=== PATIENT | female | born 1950 | race Caucasian/White ===

== ENCOUNTER 2016-07-02 12:52 | Inpatient (IN) | payer MEDICARE ==
--- NOTE | 2016-09-07 11:48 | HP ---
DATE OF CLINIC: 08/22/2016 BERNADETTE WHITAKER : 1950 PLANNED PROCEDURE: Right Total Knee Arthroplasty DATE of SURGERY: September 10, 2016 SURGEON: Roddy Harris M.D. PCP: Dr. Holger Tovar HISTORY OF PRESENT ILLNESS Bernadette Whitaker is a 65 year old female. * Medication list reviewed with patient allergy list reviewed with patient. 65-year-old female is seen today in the clinic for preoperative H&P for upcoming right TKA. She is of course s/p left TKA in January of 2016. She is doing well. She has a significant degree of pain in her right knee and is ready to proceed with arthroplasty. Dr. Harirs's last consultation is as follows: Ms. Whitaker follows up today post left total knee arthroplasty on February 13, 2016. The patient presents in good spirits and she is quite happy with her progress to date. She has accomplished her goals with physical therapy and been discharged. She presently has no complaints of pain or instability. She has some mild dysesthesia on the medial aspect of her incision. She is eager to move forward with the contralateral knee. She denies any recent illness or change in health. CURRENT MEDICATION * *DME Miscellaneous as directed CPAP machine, 0 days, 0 refills * AmLODIPine Besylate 2.5 MG Tablet 1 once a day 0 days, 0 refills * [place] Thyroid 15 MG Tablet 1 once a day 0 days, 0 refills * Excedrin Migraine 250-250-65 MG Tablet as needed 0 days, 0 refills * FLUoxetine HCl 60 MG Tablet 1 once a day 0 days, 0 refills * Levothyroxine Sodium 137 MCG Tablet 1 once a day 0 days, 0 refills * Magnesium 400 MG Tablet 1 once a day 0 days, 0 refills * Meloxicam 7.5 MG Tablet as needed 0 days, 0 refills * Naproxen Sodium 220 MG Tablet as needed 0 days, 0 refills * OxyCODONE HCl 5 MG Tablet 1-2 po q 4 hours-NOT TO EXCEED 4 tabs A DAY, 7 days, 0 refills * Passion Flower-Valerian 500-500 MG Capsule as directed 0 days, 0 refills * Pramipexole Dihydrochloride 1 MG Tablet 1 once a day 0 days, 0 refills * Simvastatin 10 MG Tablet 1 once a day 0 days, 0 refills * Sleep Medicine Tablet as directed 0 days, 0 refills * TraZODone HCl 50 MG Tablet 2 once a day 0 days, 0 refills * Vitamin D3 2000 UNIT Tablet 1 once a day 0 days, 0 refills PAST MEDICAL/SURGICAL HISTORY Reported: Medical: History of Arthritis, Restless Leg Syndrome,, Depression, Thyroid Disorder, Anemia, and Vertigo. Surgical / Procedural: Prior surgery Eye 05/2014 Colon 05/2015, Appendectomy, and Tonsilectomy. Cortisone reaction. Surgical: * Hysterectomy SOCIAL HISTORY Social history unchanged. Behavioral: Quit smoking 08/06/16. Smoking status: Former smoker. Drug Use: Not using drugs. ALLERGIES * Gluten * Latex FAMILY HISTORY Father ill Heart disease, diabetes, cancer Mother ill Cancer, hypertension REVIEW OF SYSTEMS Systemic: No fever and no recent weight change. Head: No head symptoms. Cardiovascular: No cardiovascular symptoms. Pulmonary: No pulmonary symptoms. Gastrointestinal: No gastrointestinal symptoms. Psychological: No psychological symptoms. Skin: No skin lesions and no rash. PHYSICAL FINDINGS * Vitals taken 08/22/2016 02:58 pm BP-Sitting L 137/67 mmHg BP Cuff Size Regular Pulse Rate-Sitting 68 bpm Temp-Oral 97.3 F Height 65.5 in Weight 232 lbs Body Mass Index 38.0 kg/m2 Body Surface Area 2.12 m2 Pain Level 5 Ears, Nose, Throat: * ENT: normal. Lungs: * Clear to auscultation without wheezing or crackles. Cardiovascular: Heart Rate and Rhythm: * Normal RRR without murmur or rubs. Abdomen: * Normal obese soft NT +BS. Neurological: Motor: * Dominant Hand = Right Hand. This is a well-developed, well-nourished, obese 65-year-old female presenting to the office today in no acute distress. Alert and oriented times four with a normal mood and affect. EXAM OF THE LOWER EXTREMITIES: The patient is ambulating today with a reasonably smooth heel to toe gait. She is actually more antalgic on the contralateral side than her operative extremity. She has good balance in stance. Examination of the left knee itself reveals the incision site to be well healed and benign in appearance. She has mild global swelling about the knee. Active range of motion was 0 to 125 degree. The joint itself had good play without laxity. The patella was tracking well. Knee strength was 5/5. The thigh and calf were soft and non-tender. Kristi strength and motion was full at 5/5. The distal motor, sensory and vascular function was intact with palpable dorsalis and posterior tibialis pulses. RADIOGRAPHS: Three views of the left knee are available today from [facility]. No acute osseous abnormalities are noted. Left TKA components are good position without evidence of loosening. TESTS Imaging: X-Ray: Reviewed an X-ray. An X-ray was performed. X-rays reviewed on [facility]; please see radiologists interpretation. They show no acute fractures or dislocations, but has varus aligned knee with advanced degenerative changes in the medial compartment with osteophytic spurring here as well as the lateral tibial plateau, significant patellofemoral degenerative characteristics are also appreciated. ASSESSMENT Tricompartmental osteoarthritis of the right knee. THERAPY * Patient fall risk screen positive. * Patient eligible for fall risk assessment. * Patient received fall risk assessment. PLAN * Unilateral primary osteoarthritis, right knee Physical Therapy: *Other * OTHER OxyCODONE HCl 5 MG TABS, 1-2 po q 4 hours for break thru pain if needed-TO BE USED FOR AFTER SURGERY, 7 days, 0 refills OxyCONTIN 10 MG T12A, 1 po q 12 hours-TO BE USED FOR AFTER SURGERY, 10 days, 0 refills CeleBREX 200 MG CAPS, 1 once a day-TO BE USED FOR AFTER SURGERY ONLY, 20 days, 0 refills * Total knee arthroplasty -Right Discussed with patient in detail the limitations, expectations as well as risks and possible complications of surgery including, but not limited to wound problems or infection, neurovascular injury, continued knee pain or dysfunction, including the possibility of prosthetic wear or failure over time that may require additional operative or non-operative treatment. Patient also realizes the perioperative risks including risks associated with anesthesia and would like to proceed. A full PAR conference was held, questions and concerns addressed and informed consent was obtained. Patient will be sent from my office for completion of the preoperative workup. Patient will use ECASA 325mg one per day for 6 weeks postoperatively for DVT prophylaxis Patient would like to perform their postop PT at [facility] in [place] with total knee arthroplasty protocol. CARE TEAM Holger Tovar MD Internal Medicine Saul Garza PA-C Internal Medicine CC: Holger Tovar MD Internal Medicine [facility] [place] TMR/sg
[2016-09-10] MEDS ORDERED: BUPIVACAINE 0.75% SPINAL AMPUL 2 ML ONE (10:40)
[2016-09-10] MEDS ORDERED: DEXAMETHASONE SOD PHOS 4 MG/1 ML VIAL ONE (10:40)
[2016-09-10] MEDS ORDERED: METOCLOPRAMIDE HCL 5 MG/ML 2ML VIAL ONE (10:40)
[2016-09-10] MEDS ORDERED: LIDOCAINE 2% (PRES FREE) 5 ML VIAL ONE (10:40)
[2016-09-10] MEDS ORDERED: PROPOFOL 40 ML IV ONE (10:40)
[2016-09-10] MEDS ORDERED: ROPIVACAINE 0.5% 30 ML VIAL ONE (10:40)
[2016-09-10] MEDS ORDERED: MIDAZOLAM HCL 1 MG/ML 2ML VIAL ONE (10:41)
[2016-09-10] MEDS ORDERED: FENTANYL 100 MCG/2 ML VIAL ONE (10:42)
[2016-09-10] MEDS ORDERED: BUPIVACAINE 0.25% (MDV) 20 ML in SODIUM CHLORIDE 0.9% FLUSH 20 ML IF PRN (11:15)
[2016-09-10] MEDS ORDERED: CELECOXIB 200 MG CAPSULE PO ONE (11:15)
[2016-09-10] MEDS ORDERED: POLYMYXIN B SULFATE 500,000 UNITS, BACITRACIN 25,000 UNITS in SODIUM CHLORIDE 3 L IRRIG... IR PRN (11:15)
[2016-09-10] MEDS ORDERED: TRANEXAMIC ACID 1,000 MG in SODIUM CHLORIDE 0.9% 100 ML IV PRN (11:15)
[2016-09-10] MEDS ORDERED: ONDANSETRON 4 MG/2ML 2 ML VIAL IV ONE (11:15)
[2016-09-10] MEDS ORDERED: FAMOTIDINE 20 MG TABLET PO ONE (11:15)
[2016-09-10] MEDS ORDERED: OXYCODONE HCL 10 MG TAB.SR PO ONE ×2 (11:15→11:53)
[2016-09-10] MEDS ORDERED: TRAMADOL HCL 50 MG TABLET PO ONE (11:15)
[2016-09-10] MEDS ORDERED: GABAPENTIN 600 MG TABLET PO ONE (11:15)
[2016-09-10] MEDS ORDERED: BUPIVACAINE 0.25% (MDV) 24 ML, MORPHINE SULFATE 8 MG, EPINEPHRINE 0.3 MG in SODIUM CHLO... IF PRN (11:15)
[2016-09-10] MEDS ORDERED: CEFAZOLIN SODIUM 2 GRAM DUPLEX 50 ML IV PRN (11:15)
[2016-09-10] MEDS ORDERED: LACTATED RINGERS 1,000 ML ONE (11:16)
[2016-09-10] MEDS ORDERED: IV START KIT ONE (11:16)
[2016-09-10] MEDS ORDERED: CEFAZOLIN SODIUM 2 GRAM PREMIX 100 ML IV ONE (11:17)
[2016-09-10] MEDS ORDERED: CLONIDINE HCL 0.1 MG/24 HR (7 DAY PATCH) TD ONE (11:53)
[2016-09-10] MEDS ORDERED: GABAPENTIN 600 MG TABLET ONE (11:53)
[2016-09-10] MEDS ORDERED: TRAMADOL HCL 50 MG TABLET ONE (11:53)
[2016-09-10] MEDS ORDERED: FAMOTIDINE 20 MG TABLET ONE (11:53)
[2016-09-10] MEDS ORDERED: ONDANSETRON 4 MG/2ML 2 ML VIAL ONE (11:53)
[2016-09-10] MEDS ORDERED: CELECOXIB 200 MG CAPSULE ONE (11:53)
[2016-09-10] MEDS ORDERED: BUPIVACAINE 0.5% (PRES FREE) 30 ML VIAL ONE (12:14)
[2016-09-10] MEDS: CLONIDINE HCL 0.1 MG/24 HR (7 DAY PATCH) TD SCH (12:39)
[2016-09-10] MEDS ORDERED: NERVE BLOCK PROCEDURAL TRAY 1 EACH ONE (13:16)
[2016-09-10] MEDS ORDERED: SPINAL PROCEDURAL TRAY 1 EACH ONE (13:16)
[2016-09-10] MEDS ORDERED: NALOXONE HCL 0.4 MG/ML VIAL IV PRN (15:24)
[2016-09-10] MEDS ORDERED: PROMETHAZINE HCL 25 MG/ML VIAL IM PRN (15:24)
[2016-09-10] MEDS ORDERED: FENTANYL 100 MCG/2 ML VIAL IV PRN (15:24)
[2016-09-10] MEDS ORDERED: ONDANSETRON 4 MG/2ML 2 ML VIAL IV PRN ×2 (15:24→17:35)
[2016-09-10] MEDS ORDERED: HYDROMORPHONE HCL 1 MG/ML SYRINGE IV PRN (15:24)
[2016-09-10] MEDS ORDERED: ON-Q PUMP/ROPIVACAINE 0.2% 450 ML in PREMIX BAG 1 EACH NB PRN (15:24)
[2016-09-10] MEDS ORDERED: ATROPINE SULFATE 0.4 MG/1 ML VIAL IV PRN (15:24)
[2016-09-10] MEDS ORDERED: PROPOFOL 20 ML IV ONE ×2 (15:28→16:03)
[2016-09-10] MEDS ORDERED: LACTATED RINGERS 1,000 ML IV SCH (15:30)
--- NOTE | 2016-09-10 16:42 | PCMBPN ---
Brief Post Op Note: Date of Procedure: 09/10/16 Preoperative Diagnosis: right knee DJD Postoperative Diagnosis: same Procedure: right TKA Surgeon: Roddy Harris MD Assist: Aracelis (PAULIE) Anesthesia: spinal/add block (Naedem) Condition: stable to PAR Complications: none IV Fluids: 2000 mLs of LR Urine Output: 250 mLs Estimated Blood Loss: 300 mLs Tourniquet Time: ~50 Specimens: [N/A] Implants: Legion Drains: none
[2016-09-10] MEDS ORDERED: ON-Q PUMP/ROPIVACAINE 0.2% 450 ML ONE (17:00)
[2016-09-10] MEDS ORDERED: PRAMIPEXOLE DI-HCL 1 MG TABLET PO ONE (17:08)
[2016-09-10] MEDS ORDERED: CALCIUM CARBONATE 500 MG TAB.CHEW PO PRN (17:35)
[2016-09-10] MEDS ORDERED: KETOROLAC TROMETHAMINE 30 MG/ML 1 ML VIAL IV PRN (17:35)
[2016-09-10] MEDS ORDERED: TRAZODONE HCL 50 MG TABLET PO PRN (17:35)
--- NOTE | 2016-09-10 17:42 | RAD ---
EXAMINATION: KNEE RIGHT 1 OR 2 VIEWS INDICATION:Right total knee arthroplasty. TECHNIQUE: 2 views of the right knee were obtained. COMPARISON: Presurgical exam dated 11/30/2015. A Right total knee arthroplasty is noted. No hardware fracture or loosening is identified. Alignment is anatomic. Disruption of the adjacent soft tissues compatible with recent postsurgical changes are noted. IMPRESSION: Satisfactory immediate postoperative appearance right knee arthroplasty.
[2016-09-10 19:09] VITALS: BMI 36.9
[2016-09-10] MEDS ORDERED: HYDROMORPHONE HCL 0.5 MG/0.5 ML SYRINGE IV PRN (19:51)
[2016-09-10] MEDS ORDERED: HYDROMORPHONE HCL 2 MG/ML SYRINGE IV PRN (19:53)
[2016-09-10] MEDS: ACETAMINOPHEN 500 MG TABLET PO SCH (22:45)
[2016-09-10] MEDS: DOCUSATE SODIUM 100 MG CAPSULE PO SCH (22:46)
[2016-09-10] MEDS: ASCORBIC ACID 500 MG TABLET PO SCH (22:46)
[2016-09-10] MEDS: MELATONIN 3 MG TABLET PO SCH (22:46)
[2016-09-10] MEDS: PRAMIPEXOLE DI-HCL 1 MG TABLET PO SCH (22:46)
[2016-09-10] MEDS ORDERED: PUMP TUBING ONE (22:55)
[2016-09-10] MEDS: CEFAZOLIN SODIUM 1 GRAM PREMIX 1 G in Premix (D5W) 50 ml 1 EACH IV SCH (22:58)
[2016-09-10] MEDS: OXYCODONE HCL 10 MG TAB.SR PO SCH (22:58)
[2016-09-10] MEDS: D5 1/2NS with 20 mEq KCL 1,000 ML IV SCH (23:07)
[2016-09-10] MEDS ORDERED: WATER FOR IRRIG,STERILE 500 ML BOT ONE (23:20)
[2016-09-10] MEDS: OXYCODONE HCL 5 MG TABLET PO PRN (23:39)
[2016-09-11] MEDS: D5 1/2NS with 20 mEq KCL 1,000 ML IV SCH ×3 (02:48→18:30)
[2016-09-11] MEDS: ACETAMINOPHEN 500 MG TABLET PO SCH ×4 (04:38→22:09)
[2016-09-11] MEDS: OXYCODONE HCL 5 MG TABLET PO PRN ×4 (04:38→18:36)
[2016-09-11] MEDS: ON-Q PUMP/ROPIVACAINE 0.2% 450 ML in PREMIX BAG 1 EACH NB PRN (04:43)
[2016-09-11] MEDS: CEFAZOLIN SODIUM 1 GRAM PREMIX 1 G in Premix (D5W) 50 ml 1 EACH IV SCH (06:27)
[2016-09-11 06:41] LABS: HEMATOCRIT 33.4 % (37.0-47.0); HEMOGLOBIN 10.5 gm/l (12.0-16.0); MEAN CELL VOLUME 92.5 fl (81.0-99.0); MEAN CORPUSCULAR HEMOGLOBIN 29.1 pg (27.0-31.0); MEAN CORPUSCULAR HGB CONC 31.4 g/dl (33.0-37.0); RED CELL DISTRIBUTION WIDTH 13.1 % (11.5-14.5)
[2016-09-11 07:04] LABS: CALCIUM 8.7 mg/dL (8.6-10.3)
[2016-09-11] MEDS: LEVOTHYROXINE SODIUM 137 MCG TABLET PO SCH (07:25)
[2016-09-11] MEDS: VITAMIN D3 1,000 UNITS CAP.LIQ PO SCH (09:12)
[2016-09-11] MEDS: FLUOXETINE HCL 20 MG CAPSULE PO SCH (09:12)
[2016-09-11] MEDS: DOCUSATE SODIUM 100 MG CAPSULE PO SCH ×2 (09:12→20:30)
[2016-09-11] MEDS: CELECOXIB 200 MG CAPSULE PO SCH (09:12)
[2016-09-11] MEDS: OXYCODONE HCL 10 MG TAB.SR PO SCH ×2 (09:12→20:30)
[2016-09-11] MEDS: VITAMIN E PO SCH (09:12)
[2016-09-11] MEDS: MULTIVITAMINS 1 TAB TABLET PO SCH (09:13)
[2016-09-11] MEDS: ASPIRIN (ENTERIC COATED) 325 MG TABLET.EC PO SCH (09:13)
[2016-09-11] MEDS: ASCORBIC ACID 500 MG TABLET PO SCH ×2 (09:13→20:30)
--- NOTE | 2016-09-11 09:40 | OP ---
BERNADETTE CRUMP [id number] : 1950 DATE OF SURGERY: September 10, 2016 PREOPERATIVE DIAGNOSIS: Degenerative joint disease right knee POSTOPERATIVE DIAGNOSIS: Same PROCEDURE: Right Total Knee Arthroplasty COMPONENTS: Legion size 4 posterior stabilized Oxinium cemented femoral component, size 3 cemented tibial base plate, 9mm high flexion cross-linked polyethylene articular insert, 32mm resurfacing patella. SURGEON: Roddy Harris M.D. PATIENT ACCESS ASSOCIATE: Eduardo TODD) ANESTHESIA: Spinal plus adductor nerve block per Nadeem ESTIMATED BLOOD LOSS: 300 cc IV FLUID REPLACEMENT: per anesthesia, 2 liters crystalloid. URINE OUTPUT: 250 cc DRAINS: None TOURNIQUET TIME: Approximately 50 minutes COMPLICATIONS: None HISTORY: Briefly, patient is a 65-year-old female with clinical and radiographic evidence of advanced degenerative disease of their right knee. They have failed traditional non-operative management and desire elective total knee arthroplasty. For additional details, please refer to the previously dictated Preoperative History and Physical Examination. A PAR conference was held, questions and concerns were addressed, and informed consent was obtained. FINDINGS: Tricompartmental changes with complete eburnation medially as well as significant patellofemoral changes. She had relative periarticular osteopenia. Significant amount of subcutaneous and intraarticular fatty tissue. PROCEDURE: The patient was taken to the operating room after the placement of a spinal anesthetic and regional nerve block. They were placed supine on the operating room table, a tourniquet was applied to the proximal thigh and the right lower extremity was prepped and draped out in the usual sterile fashion. Preoperative IV antibiotics were given empirically. Intraoperative DVT prophylaxis consisted of contralateral foot pumps. Personal filtration suits were used as was a closed room environment. A WHO timeout was taken. Surgical site was identified and confirmed. The leg was then elevated and the tourniquet inflated after gravity exsanguination. This was released after initial exposure and not utilized again until cementation. Tranexamic acid was infiltrated over 10 minutes prior to incision, 1 gram dose per protocol. A similar 2nd dose was given at initiation of closure. With the knee flexed, an anteromedial incision was made from the level of the tibial tubercle to two centimeters proximal to the superior pole of the patella. A medial arthrotomy was performed with a mini-mid vastus approach. A medial subperiosteal proximal tibial release was performed and a portion of the anterior fat pad was excised to improve visualization. The supra-patellar pouch was raised subperiosteally. The anterior and posterior cruciate ligaments were excised as were the remaining portions of the anterior horns of the medial and lateral menisci. Minimally invasive instrumentation and philosophy were used throughout the procedure in an attempt to decrease the extent of soft tissue disruption/damage. Patient matched cutting blocks were also used as per our preoperative plan. The Visionaire patient matched distal femoral cutting block was applied and secured to the bone. We confirmed that the alignment matched our preoperative plan and made the distal femoral cut. We confirmed the size of the femur and placed the appropriate 4-in-1 cutting block making our anterior and posterior condylar cuts followed by the chamfer cuts. Residual marginal osteophytes were removed. Attention was then directed to the tibia which was retracted anteriorly. Remaining meniscal tissue was excised. The Visionaire patient matched tibial block was then positioned and secured to bone. Alignment was confirmed as per our preoperative plan and the proximal tibial cut made. The tibia was sized and we passed the 11 mm. punch. We then balanced the flexion and extension gaps by performing a limited posterior capsular release. We confirmed hemostasis. We then completed the femoral preparation by reaming and chiseling the notch. Femoral and tibial trial components were placed. We were able to obtain full extension with nice roll back and good coronal plane alignment and stability. The patella tracked well and was prepared using the Radha patellar reaming system removing 9 mm. of bone. Osteophytes were removed prior to this with a rongeur and we performed a circumferential limited denervation using cautery. This was sized accordingly and punch holes were drilled. We marked our tibial rotation and removed the trial components after passing the cruciform tibial punch. The knee was then re-exsanguinated and the tourniquet inflated. Double antibiotic pulsatile lavage was used to irrigate the knee and clean the cancellous wolf interstices which were then carefully dried. Periarticular injection was done at this point per protocol of the posterior capsule, posteromedial knee and synovium. Two doses of high viscosity, antibiotic impregnated polymethylmethacrylate were used to cement the tibial, femoral, and then patellar components. The knee was held in extension while the cement cured. All residual methacrylate was meticulously removed. Attention was then directed towards closure. We irrigated and the retinaculum was closed with a running #2 absorbable Strato-Fix suture. A second periarticular injection was done at this point per protocol. The repair was checked in maximum flexion. We then lightly irrigated the subcutaneous tissue and closed with interrupted 2-0 and 3-0 Vicryl Plus. The skin was then reapproximated with a subcuticular 4-0 Monocryl followed by Dermabond Prineo. A sterile compression dressing was applied. The patient was then transferred to their hospital bed and sent to the post anesthesia recovery room in stable condition. They tolerated the procedure well. Sponge, instrument, and needle count were correct. CC: Holger Tovar MD [facility]
[2016-09-11] MEDS: CLONIDINE HCL 0.1 MG/24 HR (7 DAY PATCH) TD SCH (10:43)
[2016-09-11] MEDS ORDERED: REMOVE PATCH 1 EACH UNIT TD SCH (11:15)
[2016-09-11] MEDS ORDERED: REMOVE PATCH 1 EACH UNIT TD ONE (12:00)
--- NOTE | 2016-09-11 15:09 | PDOC43 ---
- Subjective Findings: Pt seen this afternoon. She has just finished first PT and is doing fine. Pain controlled at this point. Subjective: Reports Pain Tolerable, Denies Chest Pain, Denies Shortness of Breath, Denies Nausea, Denies Vomiting, Denies Fever - Objective Vital Signs Temperature 97.7 F 09/11/16 12:22 Pulse Rate 101 09/11/16 12:22 Respiratory Rate 18 09/11/16 12:22 Blood Pressure 133/52 09/11/16 12:22 O2 Saturation by Pulse Oximetry 98 09/11/16 12:22 Oxygen Delivery Method Room Air Oxygen Flow Rate 0 Laboratory 09/11/16 06:10 09/11/16 06:10 09/11/16 06:10 RBC 3.61 L MCHC 31.4 L Estimated GFR 56 L Active Medication Orders Category Date Time Status Acetaminophen [Tylenol] Med 09/10/16 22:00 Active 1,000 mg PO Q6H Ascorbic Acid [Vitamin C] Med 09/10/16 21:00 Active 500 mg PO BID Aspirin (Enteric Coated) [Ecotrin] Med 09/11/16 09:00 Active 325 mg PO DAILY Bisacodyl [Dulcolax] Med 09/13/16 16:37 Active 10 mg GA DAILY PRN Calcium Carbonate [Tums] Med 09/10/16 17:35 Active 1,000 - 2,000 mg PO Q2H PRN Celecoxib [Celebrex] Med 09/11/16 09:00 Active 200 mg PO DAILY Clonidine HCl 0.1 mg/24 Hr [Catapres-Tts] Med 09/10/16 11:15 Active 1 each TD X1 D5 1/2NS with 20 mEq KCL [D51/2NS with 20 mEq KCL] 1, Med 09/10/16 17:35 Active 000 ml IV 125 mls/hr Docusate Sodium [Colace] Med 09/10/16 21:00 Active 100 mg PO BID Fluoxetine HCl [Prozac] Med 09/11/16 09:00 Active 60 mg PO QAM Hydromorphone HCl [Dilaudid] Med 09/10/16 17:35 Active 0.5 - 2 mg IV Q2H PRN Hydromorphone HCl [Dilaudid] Med 09/10/16 19:53 Active 0.5 - 2 mg IV Q2H PRN Hydromorphone HCl [Dilaudid] Med 09/10/16 19:54 Active 0.5 - 2 mg IV Q2H PRN Ketorolac Tromethamine [Toradol] Med 09/10/16 17:35 Active 30 mg IV Q6H PRN Levothyroxine Sodium [Levothroid] Med 09/11/16 07:30 Active 137 mcg PO QAMAC Magnesium Hydroxide [Milk of Magnesia] Med 09/11/16 16:37 Active 30 ml PO DAILY PRN Melatonin Med 09/10/16 21:00 Active 6 mg PO BEDTIME Multivitamins [One-A-Day] Med 09/11/16 09:00 Active 1 tab PO DAILY On-Q Pump/Ropivacaine 0.2% 450 ml Med 09/10/16 17:35 Active Premix Bag [Premix Fluid] 1 each NB Q50H Ondansetron 4 mg/2ml Vial [Zofran] Med 09/10/16 17:35 Active 4 - 6 mg IV Q6H PRN Oxycodone HCl [Roxicodone] Med 09/10/16 17:35 Active 5 - 10 mg PO Q4H PRN Oxycodone Sr [Oxycontin] Med 09/10/16 22:00 Active 10 mg PO Q12HR Pramipexole Di-HCl [Mirapex] Med 09/10/16 21:00 Active 1 mg PO BEDTIME Remove Patch Med 09/11/16 11:15 Active 1 each TD X1 Sodium Chloride 0.9% Flush [Normal Saline 10ml Flush] Med 09/10/16 17:35 Active 10 - 50 ml IV PRN PRN Sodium Chloride 0.9% Flush [Normal Saline 10ml Flush] Med 09/11/16 01:00 Active 10 ml IV Q8HR Trazodone HCl [Desyrel] Med 09/10/16 17:35 Active 50 mg PO QPM PRN Vitamin D3 Med 09/11/16 09:00 Active 2,000 units PO DAILY Vitamin E Med 09/11/16 09:00 Active 400 interunits PO DAILY Intake and Output 09/09/16 09/10/16 09/11/16 23:59 23:59 23:59 Intake Total 2200 740 Output Total 750 850 Balance 1450 -110 General: Afebrile HEENT: Atraumatic Lungs: Normal Air Movement Abdomen: Non-Distended Skin: Normal Color Neurological: Alert, Oriented x 4 Psych/Mental Status: Normal Affect, Normal Mood - Right Lower Extremity Motor: Extensor Hallucis Longus: 5/5, Tibialis Anterior: 5/5, Gastrocnemius: 5/5 , Peroneals: 5/5, Quadriceps: 3/5 Gross Sensation to Light Touch: Present: Deep Peroneal Nerve, Superficial Peroneal Nerve Capillary Refill: < 3 Seconds Motion: Calf soft NT Knee Rom 0-70 Min assist with SLR - Problems (1) Status post right knee replacement Status: AcuteAssessment/Plan: Pod #1 1. Physical Therapy:Mobilize with PT/OT 2. Pain Control:Per protocol and nerve cath 3. DVT Prophylaxis: ASA, foot pumps and mobility 4. Disposition:Doing fine 5. Medical Issues:Acute blood loss anemia-asymptomatic will repeat h/h in am. Plan for d/c tomorrow if meets criteria
[2016-09-11] MEDS: HYDROMORPHONE HCL 1 MG/ML SYRINGE IV PRN ×2 (16:19→16:48)
[2016-09-11] MEDS ORDERED: MAGNESIUM HYDROXIDE 30 ML UDCUP PO PRN (16:37)
[2016-09-11] MEDS: MELATONIN 3 MG TABLET PO SCH (20:30)
[2016-09-11] MEDS: PRAMIPEXOLE DI-HCL 1 MG TABLET PO SCH (20:30)
[2016-09-11] MEDS: HYDROMORPHONE HCL 0.5 MG/0.5 ML SYRINGE IV PRN (22:08)
[2016-09-12] MEDS: D5 1/2NS with 20 mEq KCL 1,000 ML IV SCH (01:21)
[2016-09-12] MEDS: OXYCODONE HCL 5 MG TABLET PO PRN ×5 (05:22→21:33)
[2016-09-12] MEDS: ACETAMINOPHEN 500 MG TABLET PO SCH ×4 (05:22→21:45)
[2016-09-12 07:16] LABS: HEMATOCRIT 29.4 % (37.0-47.0); HEMOGLOBIN 9.3 gm/l (12.0-16.0)
[2016-09-12] MEDS: LEVOTHYROXINE SODIUM 137 MCG TABLET PO SCH (07:43)
[2016-09-12] MEDS: ON-Q PUMP/ROPIVACAINE 0.2% 450 ML in PREMIX BAG 1 EACH NB PRN (07:54)
--- NOTE | 2016-09-12 08:17 | PDOC43 ---
- Subjective Subjective: Reports Flatus, Reports Pain Tolerable, Denies Chest Pain, Denies Shortness of Breath, Denies Nausea, Denies Vomiting, Denies Fever - Objective Vital Signs Temperature 97.9 F 09/12/16 07:16 Pulse Rate 59 09/12/16 07:16 Respiratory Rate 18 09/12/16 07:16 Blood Pressure 140/52 09/12/16 07:16 O2 Saturation by Pulse Oximetry 96 09/12/16 07:16 Oxygen Delivery Method Room Air Oxygen Flow Rate 0 Laboratory 09/12/16 06:15 09/11/16 06:10 Active Medication Orders Category Date Time Status Acetaminophen [Tylenol] Med 09/10/16 22:00 Active 1,000 mg PO Q6H Ascorbic Acid [Vitamin C] Med 09/10/16 21:00 Active 500 mg PO BID Aspirin (Enteric Coated) [Ecotrin] Med 09/11/16 09:00 Active 325 mg PO DAILY Bisacodyl [Dulcolax] Med 09/13/16 16:37 Active 10 mg [place] DAILY PRN Calcium Carbonate [Tums] Med 09/10/16 17:35 Active 1,000 - 2,000 mg PO Q2H PRN Celecoxib [Celebrex] Med 09/11/16 09:00 Active 200 mg PO DAILY Clonidine HCl 0.1 mg/24 Hr [Catapres-Tts] Med 09/10/16 11:15 Active 1 each TD X1 Docusate Sodium [Colace] Med 09/10/16 21:00 Active 100 mg PO BID Fluoxetine HCl [Prozac] Med 09/11/16 09:00 Active 60 mg PO QAM Hydromorphone HCl [Dilaudid] Med 09/10/16 19:53 Active 0.5 - 2 mg IV Q2H PRN Hydromorphone HCl [Dilaudid] Med 09/10/16 19:54 Active 0.5 - 2 mg IV Q2H PRN Levothyroxine Sodium [Levothroid] Med 09/11/16 07:30 Active 137 mcg PO QAMAC Magnesium Hydroxide [Milk of Magnesia] Med 09/11/16 16:37 Active 30 ml PO DAILY PRN Melatonin Med 09/10/16 21:00 Active 6 mg PO BEDTIME Multivitamins [One-A-Day] Med 09/11/16 09:00 Active 1 tab PO DAILY On-Q Pump/Ropivacaine 0.2% 450 ml Med 09/10/16 17:35 Active Premix Bag [Premix Fluid] 1 each NB Q50H Ondansetron 4 mg/2ml Vial [Zofran] Med 09/10/16 17:35 Active 4 - 6 mg IV Q6H PRN Oxycodone HCl [Roxicodone] Med 09/11/16 17:23 Active 5 - 15 mg PO Q4H PRN Oxycodone Sr [Oxycontin] Med 09/10/16 22:00 Active 10 mg PO Q12HR Pramipexole Di-HCl [Mirapex] Med 09/10/16 21:00 Active 1 mg PO BEDTIME Remove Patch Med 09/11/16 11:15 Active 1 each TD X1 Sodium Chloride 0.9% Flush [Normal Saline 10ml Flush] Med 09/10/16 17:35 Active 10 - 50 ml IV PRN PRN Sodium Chloride 0.9% Flush [Normal Saline 10ml Flush] Med 09/11/16 01:00 Active 10 ml IV Q8HR Trazodone HCl [Desyrel] Med 09/10/16 17:35 Active 50 mg PO QPM PRN Vitamin D3 Med 09/11/16 09:00 Active 2,000 units PO DAILY Vitamin E Med 09/11/16 09:00 Active 400 interunits PO DAILY Intake and Output 09/10/16 09/11/16 09/12/16 23:59 23:59 23:59 Intake Total 2200 1640 600 Output Total 750 1050 Balance 1450 590 600 General: Afebrile HEENT: Atraumatic Lungs: Normal Air Movement Abdomen: Non-Distended Skin: Normal Color Neurological: Alert, Oriented x 4 - Right Lower Extremity Motor: Extensor Hallucis Longus: 5/5, Tibialis Anterior: 5/5, Gastrocnemius: 5/5 , Peroneals: 5/5, Quadriceps: 3/5 Gross Sensation to Light Touch: Present: Deep Peroneal Nerve, Superficial Peroneal Nerve Capillary Refill: < 3 Seconds Motion: Calf soft NT Knee rom 0-55 still with MILD PAIN Min assist with SLR - Problems (1) Status post right knee replacement Status: AcuteAssessment/Plan: Pod #1 1. Physical Therapy:Mobilize with PT/OT. Will need two good PT sessions if she is to d/c today. 2. Pain Control:Per protocol. Did increase her oxycodone yesterday. Nerve cath reservoir is empty will d/c 3. DVT Prophylaxis: ASA, foot pumps and mobility 4. Disposition:Doing fine 5. Medical Issues:Acute blood loss anemia-asymptomatic- consider fluid bolus if becomes symptomatic. Will repeat h/h in am if still on the floor. Plan for d/c today after two PT sessions if meets criteria
[2016-09-12] MEDS: DOCUSATE SODIUM 100 MG CAPSULE PO SCH ×2 (09:19→21:34)
[2016-09-12] MEDS: VITAMIN E PO SCH (09:19)
[2016-09-12] MEDS: FLUOXETINE HCL 20 MG CAPSULE PO SCH (09:19)
[2016-09-12] MEDS: VITAMIN D3 1,000 UNITS CAP.LIQ PO SCH (09:19)
[2016-09-12] MEDS: CELECOXIB 200 MG CAPSULE PO SCH (09:19)
[2016-09-12] MEDS: ASPIRIN (ENTERIC COATED) 325 MG TABLET.EC PO SCH (09:20)
[2016-09-12] MEDS: OXYCODONE HCL 10 MG TAB.SR PO SCH ×2 (09:21→21:33)
[2016-09-12] MEDS: ASCORBIC ACID 500 MG TABLET PO SCH ×2 (09:21→21:34)
[2016-09-12] MEDS: MULTIVITAMINS 1 TAB TABLET PO SCH (09:24)
[2016-09-12] MEDS: HYDROMORPHONE HCL 0.5 MG/0.5 ML SYRINGE IV PRN (09:49)
[2016-09-12] MEDS ORDERED: KETOROLAC TROMETHAMINE 30 MG/ML 1 ML VIAL IV ONE (12:09)
[2016-09-12] MEDS: MELATONIN 3 MG TABLET PO SCH (21:34)
[2016-09-12] MEDS: PRAMIPEXOLE DI-HCL 1 MG TABLET PO SCH (21:34)
[2016-09-13] MEDS: OXYCODONE HCL 5 MG TABLET PO PRN ×2 (02:52→07:41)
[2016-09-13] MEDS: ACETAMINOPHEN 500 MG TABLET PO SCH ×2 (04:42→10:00)
[2016-09-13 07:12] LABS: HEMATOCRIT 28.8 % (37.0-47.0); HEMOGLOBIN 9.1 gm/l (12.0-16.0)
[2016-09-13] MEDS: LEVOTHYROXINE SODIUM 137 MCG TABLET PO SCH (07:37)
[2016-09-13] MEDS: VITAMIN D3 1,000 UNITS CAP.LIQ PO SCH (08:42)
[2016-09-13] MEDS: FLUOXETINE HCL 20 MG CAPSULE PO SCH (08:42)
[2016-09-13] MEDS: DOCUSATE SODIUM 100 MG CAPSULE PO SCH (08:42)
[2016-09-13] MEDS: CELECOXIB 200 MG CAPSULE PO SCH (08:43)
[2016-09-13] MEDS: ASPIRIN (ENTERIC COATED) 325 MG TABLET.EC PO SCH (08:43)
[2016-09-13] MEDS: ASCORBIC ACID 500 MG TABLET PO SCH (08:43)
[2016-09-13] MEDS: VITAMIN E PO SCH (08:43)
[2016-09-13] MEDS: OXYCODONE HCL 10 MG TAB.SR PO SCH (08:43)
[2016-09-13] MEDS: MULTIVITAMINS 1 TAB TABLET PO SCH (08:43)
--- NOTE | 2016-09-13 08:47 | PDOC43 ---
- Subjective Findings: Pt seen this am up and doing well. States she would like to go home today. Pain seems manageable at this point. Subjective: Reports Flatus, Reports Pain Tolerable, Reports Nausea, Denies Chest Pain, Denies Shortness of Breath, Denies Vomiting, Denies Fever - Objective Vital Signs Temperature 98.8 F 09/13/16 08:00 Pulse Rate 62 09/13/16 08:00 Respiratory Rate 16 09/13/16 08:00 Blood Pressure 135/54 09/13/16 08:00 O2 Saturation by Pulse Oximetry 94 09/13/16 08:00 Oxygen Delivery Method Room Air Oxygen Flow Rate 0 Laboratory 09/13/16 06:10 09/11/16 06:10 Active Medication Orders Category Date Time Status Acetaminophen [Tylenol] Med 09/10/16 22:00 Active 1,000 mg PO Q6H Ascorbic Acid [Vitamin C] Med 09/10/16 21:00 Active 500 mg PO BID Aspirin (Enteric Coated) [Ecotrin] Med 09/11/16 09:00 Active 325 mg PO DAILY Bisacodyl [Dulcolax] Med 09/13/16 16:37 Active 10 mg MS DAILY PRN Calcium Carbonate [Tums] Med 09/10/16 17:35 Active 1,000 - 2,000 mg PO Q2H PRN Celecoxib [Celebrex] Med 09/11/16 09:00 Active 200 mg PO DAILY Docusate Sodium [Colace] Med 09/12/16 21:00 Active 200 mg PO BID Fluoxetine HCl [Prozac] Med 09/11/16 09:00 Active 60 mg PO QAM Hydromorphone HCl [Dilaudid] Med 09/10/16 19:53 Active 0.5 - 2 mg IV Q2H PRN Hydromorphone HCl [Dilaudid] Med 09/10/16 19:54 Active 0.5 - 2 mg IV Q2H PRN Levothyroxine Sodium [Levothroid] Med 09/11/16 07:30 Active 137 mcg PO QAMAC Magnesium Hydroxide [Milk of Magnesia] Med 09/11/16 16:37 Active 30 ml PO DAILY PRN Melatonin Med 09/10/16 21:00 Active 6 mg PO BEDTIME Multivitamins [One-A-Day] Med 09/11/16 09:00 Active 1 tab PO DAILY Ondansetron 4 mg/2ml Vial [Zofran] Med 09/10/16 17:35 Active 4 - 6 mg IV Q6H PRN Oxycodone HCl [Roxicodone] Med 09/11/16 17:23 Active 5 - 15 mg PO Q4H PRN Oxycodone Sr [Oxycontin] Med 09/10/16 22:00 Active 10 mg PO Q12HR Pramipexole Di-HCl [Mirapex] Med 09/10/16 21:00 Active 1 mg PO BEDTIME Sodium Chloride 0.9% Flush [Normal Saline 10ml Flush] Med 09/10/16 17:35 Active 10 - 50 ml IV PRN PRN Sodium Chloride 0.9% Flush [Normal Saline 10ml Flush] Med 09/11/16 01:00 Active 10 ml IV Q8HR Trazodone HCl [Desyrel] Med 09/10/16 17:35 Active 50 mg PO QPM PRN Vitamin D3 Med 09/11/16 09:00 Active 2,000 units PO DAILY Vitamin E Med 09/11/16 09:00 Active 400 interunits PO DAILY Intake and Output 09/11/16 09/12/16 09/13/16 23:59 23:59 23:59 Intake Total 1640 2000 600 Output Total 1050 750 350 Balance 590 1250 250 General: Afebrile HEENT: Atraumatic Lungs: Normal Air Movement Abdomen: Non-Distended Skin: Normal Color Neurological: Alert, Oriented x 4 Psych/Mental Status: Normal Affect - Right Lower Extremity Incision: Dressing Clean/Dry/Intact, Ecchymosis, Well Approximated, No Drainage Motor: Extensor Hallucis Longus: 5/5, Tibialis Anterior: 5/5, Gastrocnemius: 5/5 , Peroneals: 5/5 Gross Sensation to Light Touch: Present: Deep Peroneal Nerve, Superficial Peroneal Nerve Capillary Refill: < 3 Seconds Motion: Calf soft NT Knee rom 0-80 Ind SLR - Problems (1) Status post right knee replacement Status: AcuteAssessment/Plan: Pod #2 1. Physical Therapy:Mobilize with PT/OT. D/C today after am PT 2. Pain Control:Per protocol. 3. DVT Prophylaxis: ASA, foot pumps and mobility 4. Disposition:Doing fine 5. Medical Issues:Acute blood loss anemia-asymptomatic- consider fluid bolus if becomes symptomatic. Plan for d/c today PT sessions if meets criteria
[2016-09-13 11:30] VITALS: BP 126/49
[2016-09-13] MEDS ORDERED: BISACODYL 10 MG SUP PR PRN (16:37)
--- NOTE | 2016-09-17 14:48 | DS ---
Katey CRUMP [id number] : 1950 DATE OF ADMISSION: September 10, 2016 DATE OF DISCHARGE: September 13, 2016 DISCHARGE DIAGNOSES: Right knee osteoarthritis. HOSPITAL PROCEDURES: Right total knee arthroplasty SURGEON: Roddy Harris M.D. BRIEF HISTORY: Patient is a 65-year-old female with clinical and radiographic evidence of advanced DJD of their right knee. For the full history please see the chart note. BRIEF HOSPITAL COURSE: Patient was admitted on September 10, 2016. Dr. Roddy Harris performed a right total knee arthroplasty. They were moved to the recovery room in stable condition. They were given 4 doses of antibiotic for empiric coverage. DVT prophylaxis consisted of enteric-coated aspirin, JADA hose and AV foot pumps. PT was instituted postop day 0 with right total knee arthroplasty protocol, weightbearing as tolerated. Their incision site remained benign, their vital signs remained stable and they remained neurally and vascularly intact through the duration of the stay. They were discharged home on postop day 3 to continue their outpatient PT at [facility] with right total knee arthroplasty protocol, weightbearing as tolerated. DISCHARGE INSTRUCTIONS: 1. Keep the wound site clean. May shower with Aquacel dressing intact. Call office with any questions or concerns and f/u for your dressing change as scheduled 1 week postop. 2. Continue the use of JADA hose bilaterally. 3. Cooling unit 3-4 times daily for 30 minutes duration. 4. Outpatient PT at [facility] for right total knee arthroplasty protocol, weightbearing as tolerated. MEDICATIONS: 1. Patient is to resume normal preop medications. 2. Anti-coagulation will be with aspirin, 325 mg one per day for six weeks. 3. Pain management will be with OxyContin, 10mg every 12 hours x 10 days, Oxycodone, 5mg 1-2 every 4 hours prn for breakthrough pain. 4. Patient was also advised on utilization of a multi-vitamin with mineral daily as well as Vitamin C, 500mg daily for 1 month. 5. Patient encouraged to take an iron supplement in the form of ferrous sulfate, 325mg daily for 4 weeks. 6. Colace, 100mg, b.i.d. until regular bowel movement. FOLLOW-UP: Please return to the clinic as scheduled for your first scheduled postop check. Prior to that point in time please call with any questions or concerns. Job [id number] CC: [facility] Holger Biswas M.D.
== END 2016-09-13 10:20 | disposition home or self-care (01) | DRG 470 ==
LOC: UNDOADMIN 09-10 10:21 → MS 09-10 10:21 → OR 09-10 10:21
PROVIDERS: ADMIT Orthopaedic Surgery; ATTEND Orthopaedic Surgery
PROC: 0SRC0J9 Replacement of Right Knee Joint with Synthetic Substitute, Cemented, Open Approach (ICD-10-PCS; principal; 2016-09-10)
PROC: 3E0T3BZ Introduction of Anesthetic Agent into Peripheral Nerves and Plexi, Percutaneous Approach (ICD-10-PCS; 2016-09-10)
DX: M17.11 Unilateral primary osteoarthritis, right knee (principal)